=== PATIENT | male | born 1980 | race Caucasian/White ===

== ENCOUNTER 2022-01-07 10:55 | Emergency (ER) | payer OTHER ==
[2022-01-07 11:37] LABS: HEMOGLOBIN 12.3 gm/dl (14.0-17.5); RED BLOOD COUNT 4.13 M/UL (4.20-5.50); WHITE BLOOD COUNT 7.5 K/UL (4.5-11.0)
[2022-01-07 11:52] LABS: BUN/CREATININE RATIO 8 (0-10)
[2022-01-07] MEDS ORDERED: MYLANTA MAXIMU355 ML PO (15:15)
[2022-01-07] MEDS ORDERED: PROTONIX40 MG PO (15:15)
== END 2022-01-07 15:25 | disposition home or self-care (01) ==
LOC: ER1 10:55
DX: R00.1 Bradycardia, unspecified (principal); K21.9 Gastro-esophageal reflux disease without esophagitis; E87.6 Hypokalemia; E11.9 Type 2 diabetes mellitus without complications; I10 Essential (primary) hypertension; E78.5 Hyperlipidemia, unspecified; Z91.030 Bee allergy status
CPT/HCPCS: 71045; 80053; 82550; 82553; 83690; 84484; 85025; 93005; 96374; 99285; C9113